=== PATIENT | female | born 1960 | race Caucasian/White ===

== ENCOUNTER 2023-05-15 05:53 | Day surgery (SDC) | payer OTHER, SELFPAY ==
[2023-05-15] VITALS (17 sets, daily range): BP systolic 89–114; BP diastolic 51–84; BMI 50.1
[2023-05-15 06:51] LABS: Glucose - Point of Care 152 mg/dl (70-99)
[2023-05-15 08:58] LABS: ACT-LR - POC 324 Seconds (116-155)
[2023-05-15 09:20] LABS: ACT-LR - POC 314 Seconds (116-155)
[2023-05-15 09:37] LABS: ACT-LR - POC 308 Seconds (116-155)
[2023-05-15 09:55] LABS: ACT-LR - POC 302 Seconds (116-155)
--- NOTE | 2023-05-15 10:23 | ITS.CL.ABL ---
Air Quality Technician - Ablation
Ablation
Procedure Report:
AFIB ablation:
Ms. Valdivia is a very pleasant 63 yr old woman with medical history significant for symptomatic persistent atrial fibrillation failed amiodarone and remained in AF despite DCCV attempt x 3 who is here in the EP lab for atrial fibrillation ablation
Date of Procedure:
05/15/2023
Indications:
Symptomatic atrial fibrillation
Pre-Operative Diagnosis:
Persistent Atrial fibrillation
Post-Operative Diagnosis:
Persistent Atrial fibrillation
Procedure Performed:
Atrial fibrillation ablation with wide area circumferential ablation (WACA) approach for pulmonary vein isolation
Performing Physician:
Olu Mckeon MD
Assistants:
EP staff
Anesthesia:
See anesthesia records
Detailed Description of the Procedure:
Written informed consent was obtained from the patient after a full explanation of the risks and benefits of the procedure including the risks of sedation and anesthesia.
The patient was brought to the electrophysiology laboratory in stable condition in fasting state. Continuous electrocardiographic and hemodynamic monitoring was initiated.
The initial rhythm was atrial fibrillation.
The procedure site was meticulously prepared with surgical scrub and allowed to dry with no pooling. Sterile draping was applied to cover the procedure site. The image intensifier was draped with sterile bag and positioned over the patient. After
infusion of local anesthetic, vascular access was obtained under ultrasound guidance and sheaths were placed over guide wire as detailed below.
Sheath and Catheter Placement:
In the right femoral vein, an 8-Macedonian sheath was placed for use during the ablation procedure. A second 9-Fr sheath was placed for use during intracardiac echo procedure.
The sheaths were upgraded as needed during the case. Intracardiac catheters were positioned using direct fluoroscopic guidance.� ICE catheter was placed in RA. The following catheters / sheaths were placed
Sheaths:
��������������� Agilis sheath in right femoral vein upgraded from 8Fr in right femoral vein
��������������� 9Fr in right femoral vein
��������������� 7fr in right femoral vein
Catheters:
������������� Biosense Malcolm Thermacool STSF bidirectional (D/F) - at locations of HRA, RV, LA and LV.
������������� Pentaray catheter � at locations of RA� and LA
������������� ICE catheter - at locations of RA, SVC, and RV.
������������� Decapolar Bard catheter � at locations of RA and CS
Intracardiac ECHO:
An 8-Macedonian AcuNav intracardiac ECHO (ICE) probe was advanced through the 9-Macedonian sheath in the femoral vein into the right atrium under fluoroscopic and ICE ultrasound image guidance and a baseline ECHO study was performed. The left atrial size
was enlarged. There was trace tricuspid regurgitation. The aortic valve was normal. There was normal left ventricular size and function. There was trace pericardial effusion. The MAIN has low velocities noted on Doppler in atrial fibrillation. All
the four veins were identified and good flow noted.
During the procedure, ICE was used for monitoring of complications, guidance of trans-septal puncture, monitor the catheter position and tracking ablation lesions. No change in the pericardial space noted throughout the procedure.
Trans-septal Puncture:
Heparin was initiated and infused to maintain appropriate ACT.
A J-tipped guidewire was advanced through the 8-Macedonian sheath in the right femoral vein into the superior vena cava under fluoroscopic and ICE guidance. The 8-Macedonian sheath was exchanged for an Agilis sheath which was advanced into the superior vena
cava. A BRK needle was advanced until the tip was slightly behind the tip of the dilator inside the Agilis. The apparatus was withdrawn until it was in contact with the fossa ovalis. The position was adjusted based on fluoroscopy and ultrasound
images from ICE. Under fluoroscopic, hemodynamic and ICE ultrasound guidance, left atrium was cannulated by advancing the needle. Once atrial septum was cannulated, the needle was pulled back and a BMW guide wire was advanced through the needle into
the left atrium. The guide wire was advanced into the left superior pulmonary vein. Both the sheath and the dilator was advanced into the left atrium. The dilator with the needle was withdrawn. Blood was aspirated from the Agilis sheath and arterial
blood confirmed. The sheath was flushed. Saline injection noted into the left atrium on ICE. The pressure waveform was checked ad LA pressure measured. The penta-ray catheter was advanced in the Agilis sheath into the left pulmonary vein.
The 3-D mapping was done and then the penta-ray was switched to ablation catheter and back to penta-ray as needed.
3D Electroanatomic Mapping:
Using the Pentaray catheter advanced through Agilis sheath into the left atrium, an electroanatomic map (EAM) of the left atrium was created using [email or web address] Carto mapping system. The map was used for localization of catheter position and
tacking of ablation lesions. The EAM of the left atrium showed 5 pulmonary veins (two left sided and three right sided) with all electrically connected to the body the LA. It showed some low voltage areas in atrial fibrillation on the posterior wall
of the LA in atrial fibrillation but once sinus rhythm achieved, there was no significant scar present. The LA was dilated in size.
The four pulmonary veins were very active and significant ectopy was noted.
Following the EAM, preparations were made for ablation.
Phrenic nerve stimulation attempt:
The right sided pulmonary veins were identified and the anterior antrum and the deep anterior locations of the PVs were check with high output stimulation that showed no phrenic nerve capture in any of the potential ablation areas.
The safe areas were marked and a design line was created through the safe areas of tested antral myocardium for ablation lesions.
Ablation:
Pulmonary vein Isolation:
Radiofrequency ablation was performed using an open irrigation, force-sensing 3.5mm radiofrequency ablation catheter (Thermocool STSF) by completing the circumferential lesions around the left and right pulmonary veins achieving pulmonary vein
isolation.
All the ablation lesions were guided by the [facility] SURPOINT module with the posterior lesions were limited to 45 oconnor for SURPOINT lesion index goal of 400 and anterior wall lesions were limited to SURPOINT index goal of 450.
The esophagus was noted to be on the mid of the LA near the PV antra based on the locations of the esophageal temperature probe. Ablation was stopped for any temperature increase of 0.1 degree C. Max esophageal temperature was 38.1C.
Cardioversion:
Due to the persistence of atrial fibrillation following the PVI, the decision was made to proceed with a cardioversion followed by the remainder of the ablation as detailed below. Therefore, a 200J shock was delivered to the chest via Zoll patches
placed with muslim of sinus rhythm. The patient remained hemodynamically stable throughout.
The CS was paced with the ablator and no cardiac pause noted.
EP study and Confirmation of the PVI and bidirectional block:
Following achievement of entrance block at the pulmonary veins, pacing from the pentaray catheter in MAIN and the pentaray in each of the four veins at 10 milliamps for 2 milliseconds showed entrance and exit block. All PVI were rechecked at the end
of the case and remained isolated with dissociated and local capture with pacing. Entrance and exit block were demonstrated in all veins.
The LA was mapped with Carto EAM in sinus rhythm confirming the line of block at the ablation lesions lines.
Sinus Node Function: The sinus node functions are within acceptable normal range.
The AV michael functions are deemed within normal range.
Arrhythmia Induction:
No sustained arrhythmia was induced at the end of the study.�
Procedure End
ICE study was done again that showed no epicardial accumulation. No complications noted.
Following the completion of the EP study, catheters were removed. Protamine 40 mg was given at the end of the procedure and ACT was checked repeatedly. The sheaths were removed and hemostasis achieved with manual compression after acceptable ACT is
achieved.
Atrial Pressure:
Pre-Procedure: Mean RA pressure was 18mmHg (AF)
Pre-Procedure: Mean LA pressure was 20mmHg (AF)
Post-Procedure: Mean LA pressure was 23mmHg (sinus)
Post-Procedure: Mean RA pressure was 16mmHg (Sinus)
Estimated Blood loss:
<10 cc
Specimens Removed:
None.
Implants / Devices:
None
Urine output:
None
Packs / Drains/ Tubes:
None
Instrument / Sponge Count Correct:
Yes
Complications of the Procedure:
None
Condition of Patient at Time of Transfer:
Hemodynamically stable with no neurological or vascular compromise.
Summary:
Successful atrial fibrillation ablation with circumferential bidirectional line of block at pulmonary vein antra (Pulmonary vein isolation)
cc: Dr. Be [facility]
[2023-05-15 11:20] LABS: Glucose - Point of Care 163 mg/dl (70-99)
--- NOTE | 2023-05-15 13:01 | CM ---
Reviewed chart. Met with Mrs. Valdivia to review discharge plans. She states prior to admission she resides alone in a two story home with two steps to enter. She states she has to go up a full flight of steps to get to bedroom/full bathroom. She
states she has a powder room on the first floor. She states prior to admission she was independent with ambulation and adls. She states at times she does use a single point cane when her arthritis in her hip acts up. She states she has a
prescription plan and uses [facility]. The discharge plan is to return home when medically stable.
[2023-05-15] MEDS: NOVOLOG FLEXPEN-MODERATE RESISTANCE 1 UNITS SC (14:48)
[2023-05-15] MEDS: ANESTHETIC LOZENGE 1 LOZENGE PO (14:49)
[2023-05-15] MEDS: ELIQUIS 5 MG PO (16:03)
[2023-05-15] MEDS: TYLENOL 650 MG PO (16:03)
[2023-05-15 17:08] LABS: Glucose - Point of Care 257 mg/dl (70-99)
[2023-05-15] MEDS: NOVOLOG FLEXPEN-MODERATE RESISTANCE 5 UNITS SC (17:08)
--- NOTE | 2023-05-15 18:22 | PTCARENOTE ---
Pt received from recovery area post ablation. Right femoral vein site with dry and intact dressing, figure of eight suture removed per protocol, no sign of bleeding or hematoma. Right lower abdomen with ? skin tear/puncture sites, vaseline applied.
Pt OOB to bathroom using a walker. Pt voiding without difficulty. Telemetry shows sinus rhythm with first degree AV block.
[2023-05-15] MEDS: TOPROL XL 25 MG PO (20:44)
[2023-05-15 22:39] LABS: Glucose - Point of Care 247 mg/dl (70-99)
[2023-05-16 03:56] VITALS: BP 119/69
[2023-05-16 04:15] VITALS: BMI 50.5
[2023-05-16 04:51] LABS: Hematocrit 40.2 % (37.0-47.0); Mean Corp Hgb Conc. 34.8 g/dL (33.0-37.0); Mean Corpuscular Hgb 32.6 pg (27.0-31.0); Mean Corpuscular Volume 93.7 fL (81.0-99.0); Mean Platelet Volume 10.2 fL (7.4-10.4); Platelet Count 277 10^3/uL (130-400); Red Blood Cell Count 4.29 10^6/uL (4.20-5.40); Red Cell Dist. Width 12.7 % (11.5-14.5); White Blood Cell Count 11.2 10^3/uL (4.8-10.8)
[2023-05-16 05:20] LABS: Blood Urea Nitrogen 16 mg/dl (7-17); Calcium 9.1 mg/dl (8.4-10.2); Carbon Dioxide 26 mmol/L (22-30); Chloride 102 mmol/L (98-107); Estimated Creatinine Clearance > 125 ml/min; Glucose 229 mg/dl (70-99); Magnesium 2.3 mg/dl (1.6-2.3); Potassium 3.9 mmol/L (3.5-5.1); Sodium 135 mmol/L (135-145); eGFR > 60.00
--- NOTE | 2023-05-16 05:43 | PTCARENOTE ---
Patient with no complaints overnight. Walking to the bathroom with rolling walker. SR, right femoral dressing CDI. Call snowden in reach
[2023-05-16 07:55] LABS: Glucose - Point of Care 227 mg/dl (70-99)
[2023-05-16 07:58] VITALS: BP 110/68
[2023-05-16] MEDS: NOVOLOG FLEXPEN-MODERATE RESISTANCE 3 UNITS SC (08:08)
[2023-05-16] MEDS: PROTONIX 40 MG PO (08:09)
[2023-05-16] MEDS: ZETIA 10 MG PO (08:09)
[2023-05-16] MEDS: KCL 20 MEQ PO (08:10)
[2023-05-16] MEDS: CARDIZEM CD 360 MG PO (08:10)
[2023-05-16] MEDS: AMARYL 1 MG PO (08:10)
[2023-05-16] MEDS: GLUCOPHAGE XR EXTENDED RELEASE 1000 MG PO (08:10)
[2023-05-16] MEDS: TOPROL XL 25 MG PO (08:11)
[2023-05-16] MEDS: LASIX 40 MG PO (08:11)
[2023-05-16] MEDS: PACERONE 200 MG PO (08:11)
[2023-05-16] MEDS: ELIQUIS 5 MG PO (08:11)
[2023-05-16] MEDS: ANESTHETIC LOZENGE 1 LOZENGE PO (08:16)
--- NOTE | 2023-05-16 08:45 | W.PN.CARDCBS ---
Addendum entered and electronically signed by Yovany Khalil MD 05/16/23 11:30:
I saw and examined the patient.
The PA's note was reviewed and I agree with the note.
Comment: 63F with DM, hypertension, morbid obesity and persistent AF now s/p AF ablation.
- groin OK
- no CP
- stable for d/c
Original Note:
Today's Communication / Plan
-
post ablation stable for d/c home today
Impression / Plan
-
PCP: DUARTE Canseco
CDY: Monica Be MD
63 yr old woman with medical history significant for symptomatic persistent atrial fibrillation failed amiodarone and remained in AF despite DCCV attempt x 3 who is here in the EP lab for atrial fibrillation ablation
Impression/Plan:
#Symptomatic Persistent Afib - post PVI 05/15/23, feels great, no cp, groin stable
OAC Eliquis, will continue amiodarone 200mg daily, metoprolol 25 bid and Diltiazem 360mg daily until f/u apt
PPI for 2 weeks
Activity restrictions reviewed, recommended sleep study, and wt loss
f/u cbc 2 weeks, then continue cardiac care with Dr. Be
#NIDDM - continue metformin, glimepiride, Trulicity
#HTN
#HLD
#chronic HFpEF
#WPW prior ablation 2002
#Moderate MR - will need to follow with Echo
#Breast Cancer s/p Mastectomy, XRT
#MO - wt loss encouraged
Home today
Progress Note - Accounting Manager Controller
Subjective
Date of Service: May 16, 2023
no cp, sob
Objective
Labs:
05/16/23 04:10
05/16/23 04:10
Labs
Hgb 14.0 g/dL (12.0-16.0) 02/23/24 04:10
Hct 40.2 % (37.0-47.0) 05/16/23 04:10
Plt Count 277 10^3/uL (130-400) 05/16/23 04:10
Sodium 135 mmol/L (135-145) 05/16/23 04:10
Potassium 3.9 mmol/L (3.5-5.1) 05/16/23 04:10
BUN 16 mg/dl (7-17) 05/16/23 04:10
Creatinine 0.6 mg/dL (0.6-1.0) 05/16/23 04:10
Glucose 229 mg/dl (70-99) H 05/16/23 04:10
Vital Signs and I&O:
Vital Signs
Temp Pulse Resp BP Pulse Ox
97.9 F 90 18 110/68 93
05/16/23 08:01 05/16/23 08:00 05/16/23 08:01 05/16/23 07:58 05/16/23 08:02
Vital Signs
Temp Pulse Resp BP Pulse Ox
97.9 F 90 18 110/68 93
05/16/23 08:01 05/16/23 08:00 05/16/23 08:01 05/16/23 07:58 05/16/23 08:02
Intake & Output
05/14/23 05/15/23 05/16/23 05/17/23
06:59 06:59 06:59 06:59
Intake Total 2700 / 2700
Output Total 300 / 300
Balance 2400 / 2400
Physical Exam
Physical Exam
NAD, AOX3
S1, s2, RRR
CTAB, non labored
SNTND bsx4, obese
R fem site c/d/i soft, above puncture site at skin fold excoriation, small skin tear
[2023-05-16 09:27] LABS: Glycohemoglobin (HgbA1c) 7.6 % (4.0-5.6)
[2023-05-16 11:15] VITALS: BP 113/76
--- NOTE | 2023-05-16 13:06 | PTCARENOTE ---
Pt seen by Colleen Vieira NP and . Telemetry and IV device removed. Discharge instructions reviewed with pt regarding CHF guidelines, wound care, activity and driving guiidelines, medications and their possible side effects, reproting cares
and concerns and follow up appt's. Excellent understanding verbalized. pt escorted out via wheelchair and pt discharged to home.
--- NOTE | 2023-05-16 14:15 | W.DS.TRANS ---
DC Summary - [employer]
-
Discharge Instructions:
Sleep Apnea Risk High
Discharge Diagnosis/Procedures Afib post ablation
Diet Low Cholesterol,Diabetic, Carb Controlled
Driving Restrictions No driving for 24 hours
Instructions:
Stand-Alone Forms: DC Instructions- Cath/EP Lab
Changes to Home Medications: Yes
Discharge Medications:
DC Medications w/original date entered in [employer]
dulaglutide 4.5 mg/0.5 mL subcutaneous pen injector (Trulicity) 4.5 mg SC WE@2100 Diabetes 03/31/23
ezetimibe 10 mg tablet 10 mg PO DAILY High Cholesterol 03/31/23
glimepiride 1 mg tablet 1 mg PO DAILY Diabetes 03/31/23
nystatin 100,000 unit/gram topical cream 1 applic topical BID PRN apply under B/L breasts 03/31/23
apixaban 5 mg tablet (Eliquis) 5 mg PO BID #60 tabs 04/08/23
diltiazem HCl 180 mg capsule,extended release 24 hr 360 mg PO DAILY #30 caps 04/17/23
metoprolol succinate 25 mg tablet,extended release 24 hr 25 mg PO BID #60 tabs 04/17/23
potassium chloride 20 mEq tablet,extended release(part/cryst) 20 meq PO DAILY #30 tabs 04/17/23
amiodarone 200 mg tablet 200 mg PO DAILY 05/15/23
gvxioyne-woy-rpeo 18 mg-FA 400 mcg-calcium 500 mg-vit K 50 mcg tablet (Women's Multivitamin) 1 tab PO DAILY 05/15/23
furosemide 40 mg tablet 40 mg PO DAILY #90 tabs 05/16/23
metformin 500 mg tablet,extended release 24 hr 1,000 mg PO DAILY Diabetes #0 tabs 05/16/23
pantoprazole 40 mg tablet,delayed release (Protonix) 40 mg PO DAILY #14 tabs 05/16/23
Home Medication Changes
protonix for 2 weeks
Pending Results: No
== END 2023-05-16 12:30 | disposition home or self-care (01) ==
LOC: CATH 05:53
PROVIDERS: Nurse Practitioner Adult Health; ATTENDING PHYSICIAN Internal Medicine Cardiovascular Disease; FAMILY PHYSICIAN Nurse Practitioner Family
DX: I48.19 Other persistent atrial fibrillation (principal); E11.9 Type 2 diabetes mellitus without complications; Z79.84 Long term (current) use of oral hypoglycemic drugs; I11.0 Hypertensive heart disease with heart failure; I50.32 Chronic diastolic (congestive) heart failure; I45.6 Pre-excitation syndrome; E78.5 Hyperlipidemia, unspecified; I34.0 Nonrheumatic mitral (valve) insufficiency; Z90.10 Acquired absence of unspecified breast and nipple; Z85.3 Personal history of malignant neoplasm of breast; Z92.3 Personal history of irradiation; E66.01 Morbid (severe) obesity due to excess calories; Z68.43 Body mass index [BMI] 50.0-59.9, adult
CPT/HCPCS: C1732; C1766; C1892; C1759; C1894; 76937; 80048; 82962; 83036; 83735; 85027; 85347; 86850; 86900; 86901; 93005; 93656; C1769

== ENCOUNTER 2023-06-04 08:54 | Day surgery (SDC) | payer OTHER, SELFPAY ==
[2023-06-04 10:07] LABS: Glucose - Point of Care 144 mg/dl (70-99)
--- NOTE | 2023-06-04 10:56 | ITS.CL.CARDI ---
Insurance Specialist - Cardioversion
Cardioversion
Procedure Report:
Date of Procedure:06/04/23
Procedure: Cardioversion.
Indication: Symptomatic atrial fibrillation.
Performing Physician: Karen Rivas MD
Technique: The patient was brought to the holding area. Signed informed consent was obtained. A time out was called and performed. The patient was sedated by a member of the anesthesia service. Anticoagulation status was reviewed and was
appropriate. R-2 pads were placed anteriorly and posteriorly. A 200 J synchronized biphasic shock restored normal sinus rhythm without significant bradycardia. There were no complications.
Conclusion: Uncomplicated cardioversion from atrial fibrillation to sinus rhythm.
Recommendation: Routine post cardioversion care. Continue terminal carman anticoagulation.
cc:Haile Mckeon
== END 2023-06-04 10:57 | disposition home or self-care (01) ==
LOC: CATH 08:54
PROVIDERS: ATTENDING PHYSICIAN Internal Medicine Cardiovascular Disease; FAMILY PHYSICIAN Nurse Practitioner Family
DX: I48.0 Paroxysmal atrial fibrillation (principal); I25.10 Atherosclerotic heart disease of native coronary artery without angina pectoris; I11.0 Hypertensive heart disease with heart failure; I50.32 Chronic diastolic (congestive) heart failure; E11.9 Type 2 diabetes mellitus without complications; E66.9 Obesity, unspecified; Z68.43 Body mass index [BMI] 50.0-59.9, adult; E78.5 Hyperlipidemia, unspecified; Z85.3 Personal history of malignant neoplasm of breast; Z87.891 Personal history of nicotine dependence; Z79.85 Long-term (current) use of injectable non-insulin antidiabetic drugs; Z79.84 Long term (current) use of oral hypoglycemic drugs; Z79.01 Long term (current) use of anticoagulants
CPT/HCPCS: 82962; 92960; 93005

== ENCOUNTER → 2023-07-11 09:22 | Outpatient (REF) | payer OTHER, SELFPAY | LOC: WDC 09:22 | PROVIDERS: ATTENDING PHYSICIAN Nurse Practitioner Family | DX: R92.8 Other abnormal and inconclusive findings on diagnostic imaging of breast (principal) | CPT/HCPCS: 76642; 77061; 77065 ==

== ENCOUNTER → 2023-07-15 12:23 | Outpatient (REF) | payer OTHER, SELFPAY | LOC: RSP 12:23 | PROVIDERS: ATTENDING PHYSICIAN Nurse Practitioner; FAMILY PHYSICIAN Nurse Practitioner Family | DX: I48.0 Paroxysmal atrial fibrillation (principal) | CPT/HCPCS: 94727; 94729; 88738; 94060 ==

== ENCOUNTER → 2024-01-30 07:16 | Outpatient (REF) | payer OTHER, SELFPAY | LOC: RAD 07:16 | PROVIDERS: ATTENDING PHYSICIAN Internal Medicine Cardiovascular Disease; FAMILY PHYSICIAN Nurse Practitioner Family; REFERRING PHYSICIAN Nurse Practitioner Family | DX: R09.89 Other specified symptoms and signs involving the circulatory and respiratory systems (principal) | CPT/HCPCS: 93880 ==

== ENCOUNTER → 2024-02-07 11:00 | Outpatient (REF) | payer OTHER, SELFPAY | LOC: WDC 11:00 | PROVIDERS: ATTENDING PHYSICIAN Nurse Practitioner Family | DX: Z12.31 Encounter for screening mammogram for malignant neoplasm of breast (principal) | CPT/HCPCS: 77063; 77067 ==